=== PATIENT | male | born 1950 | race Caucasian/White ===

== ENCOUNTER 2018-10-12 09:33 | Outpatient (CLI) | payer MEDICARE ==
--- NOTE | 2018-10-12 09:50 | RAD ---
XR Chest Pa Lat STANDARD HISTORY: Cough and congestion COMPARISON: None FINDINGS: The heart size is normal. The lungs are well expanded without focal areas of consolidation, pneumothorax or pleural effusions. There are degenerative changes in the spine. IMPRESSION: No radiographic evidence of acute cardiopulmonary process.
== END 2018-10-12 09:34 | disposition home or self-care (01) ==
LOC: SCSRAD 09:33
PROVIDERS: ATTEND Family Medicine
DX: J22 Unspecified acute lower respiratory infection (principal)
CPT/HCPCS: 71046

== ENCOUNTER 2019-11-09 09:57 | Outpatient (CLI) | payer OTHER ==
--- NOTE | 2019-11-09 11:15 | CT ---
CT heart noncontrast coronary calcium score: DATE: 11/09/2019 HISTORY: 68-year-old male with hypertension. Coronary atherosclerotic disease screening exam. FINDINGS: Thoracic aorta is very tortuous, especially the ascending aorta, which crosses the midline into the r ight side of the posterior mediastinum. Ascending aortic caliber is at least 4 cm. (Aortic arch not included on images). Visualized limited [id number] central lung sage demonstrate no obvious cons olidation or infiltrate. No cardiomegaly. Diffusely low hepatic attenuation consistent with fatty liver. Agatston score coronary calcification: Left main: 0 LAD: 99 LCx: 69 RCA: 79 PDA: 0 Total: 247 IMPRESSION: 1.) Coronary atherosclerosis due to calcified coronary lesion. 2) total calcium score 247. This places the patient between the 50th percentile and 60th percentile f or patient's age group of 66-70 years. Moderate atherosclerotic plaque is present. At least mild coronary artery disease is highly likely. 3) hepatic steatosis.
== END 2019-11-09 09:58 | disposition home or self-care (01) ==
LOC: BICCT 09:57
PROVIDERS: ATTEND Family Medicine
DX: I10 Essential (primary) hypertension (principal); I25.10 Atherosclerotic heart disease of native coronary artery without angina pectoris; I25.84 Coronary atherosclerosis due to calcified coronary lesion; K76.0 Fatty (change of) liver, not elsewhere classified
CPT/HCPCS: 75571

== ENCOUNTER 2020-04-15 06:36 | Outpatient (CLI) | payer MEDICARE ==
[2020-04-15 11:03] LABS: #Eosinphils 0.3 10x3/uL (0.0-0.5); #Monocytes 0.7 10x3/uL (0.0-1.1); %Basophils 0.7 % (0.0-2.0); %Eosinophils 5.3 % (0.0-6.0); %Lymphocytes 32.4 % (18.0-47.0); %Neutrophils 50.1 % (40.0-75.0); Mean Corpuscular Hemoglobin 32.1 PG (27.0-33.0); Mean Corpuscular Volume 94.5 fl (80.0-100.0); Mean Platelet Volume 9.2 fl (7.4-10.4); Platelet Count 165 10x3/uL (130-400); RBC Distribution Width 14.1 % (11.5-14.5)
[2020-04-15 11:15] LABS: ALT (SGPT) 66 U/L (8-55); AST (SGOT) 67 U/L (5-34); Albumin 4.3 g/dL (3.4-4.8); Alkaline Phosphatase 83 U/L (40-110); Anion Gap 15 mmol/L (10-20); BUN (Urea Nitrogen) 14 mg/dL (8.4-25.7); Bilirubin, Total 1.1 mg/dL (0.2-1.2); Calc. Creatinine Clearance 0 mL/min (70-130); Calcium 9.6 mg/dL (7.8-10.44); Carbon Dioxide 28 mmol/L (23-31); Chloride 99 mmol/L (98-107); Estimated GFR-MDRD 69; Globulin 3.9 g/dL (2.4-3.5); Glucose 113 mg/dL (80-115); Potassium 4.5 mmol/L (3.5-5.1); Protein, Total 8.2 g/dL (5.8-8.1); Sodium 137 mmol/L (136-145)
[2020-04-15 20:04] LABS: SARS-CoV-2 MS2 Positive; SARS-CoV-2 N Gene Negative; SARS-CoV-2 S Gene Negative; SARS-CoV-2 by NAA Not Detected (NotDetected); SARS-CoV-2 orf1ab Negative
--- NOTE | 2020-04-16 07:10 | EKG ---
Test Reason : Blood Pressure : / mmHG Vent. Rate : 077 BPM Atrial Rate : 077 BPM P-R Int : 262 ms QRS Dur : 104 ms QT Int : 390 ms P-R-T Axes : 046 062 052 degrees QTc Int : 441 ms Sinus rhythm with 1st degree A-V block Septal infarct , age undetermined Abnormal ECG Confirmed by DR. Yanira MARROQUIN ([id number]) on 04/16/2020 7:10:06 AM Referred By: Juan Daniel JUSTICE Confirmed By:DR. Yanira MARROQUIN
== END 2020-04-15 06:37 | disposition home or self-care (01) ==
LOC: LABBT 06:36
PROVIDERS: ATTEND Surgery
DX: Z01.818 Encounter for other preprocedural examination (principal); Z01.812 Encounter for preprocedural laboratory examination; Z20.828 Contact with and (suspected) exposure to other viral communicable diseases; K42.9 Umbilical hernia without obstruction or gangrene; D17.79 Benign lipomatous neoplasm of other sites
CPT/HCPCS: 80053; 85025; 93005; U0003; 87635; 93010

== ENCOUNTER 2020-04-18 05:52 | Day surgery (SDC) | payer MEDICARE ==
[2020-04-17 09:26] VITALS: BMI 33.9
[2020-04-18] MEDS ORDERED: Fentanyl 100 MCG/2 ML VIAL ONE ×2 (07:36→09:31)
[2020-04-18] MEDS ORDERED: Lidocaine 1% w/Epinephrine 1:100K 20 ML VIAL ONE (07:43)
[2020-04-18] MEDS ORDERED: Bupivacaine PF 0.5% 30 ML VIAL ONE (07:43)
[2020-04-18] MEDS ORDERED: SUGAMMADEX SODIUM 200 MG/2 ML VIAL ONE (08:44)
--- NOTE | 2020-04-18 09:21 | OP ---
DATE OF PROCEDURE: 04/18/2020 PREOPERATIVE DIAGNOSES: Umbilical hernia and sebaceous cyst. PROCEDURES PERFORMED: 1. Umbilical hernia repair with mesh. 2. Excision of sebaceous cyst, left chest. INDICATIONS: The patient is a 69-year-old male, who has an enlarging painful umbilical hernia as well as a large sebaceous cyst, desired repair and removal. FINDINGS: 3 cm umbilical hernia defect, 8 cm mesh used, a 4 cm sebaceous cyst of left chest. DESCRIPTION OF PROCEDURE: After informed consent was obtained, the patient was taken to the operating room, given general endotracheal anesthesia, placed in the supine position. The abdomen was prepped and draped in usual fashion. Local anesthesia was infiltrated subcutaneously and deep, and a subumbilical incision was performed. Subcutaneous divided sharply. The umbilical skin was sharply dissected from the hernia sac with Metzenbaum scissors circumferentially down to the fascia. Then, using the cautery, the sac was incised circumferentially and removed. Contents were reduced. An 8 cm Proceed mesh was hydrated, rolled, and inserted intra-abdominally, then unrolled and its wings were sutured to the fascia with interrupted 0 Ethibond suture and then the mesh further secured with 0 Ethibond suture. Hemostasis was assured with electrocautery. The umbilical skin was sutured to the fascia with interrupted 3-0 Vicryl to restore umbilical contour and then skin closed with interrupted 4-0 Rapide. Steri-Strips were applied. Sterile bandage was applied. Then, local anesthesia was infiltrated subcutaneously and deep around the sebaceous cyst. An elliptical incision was performed and it was excised intact circumferentially and sent to Pathology for further analysis. Hemostasis was achieved with electrocautery. Subcutaneous was reapproximated with interrupted 3-0 Vicryl after irrigation. Then, skin was closed with interrupted 4-0 Rapide. Dermabond was applied. The patient tolerated the procedure well and transferred to Recovery in good condition. Sponge and needle count verified correct x2. Job ID: [id number]
[2020-04-18] MEDS ORDERED: Rocuronium Bromide 10 MG/ML (10ML VIAL) ONE (09:52)
[2020-04-18] MEDS ORDERED: Glycopyrrolate 0.2 MG/ML 5 ML SYRINGE ONE (09:52)
[2020-04-18] MEDS ORDERED: Succinylcholine 200 MG/10 ml SYRINGE FS ONE (09:52)
[2020-04-18] MEDS ORDERED: PHENYLEPHRINE-NS 100 MCG/ML 10 ML SYRINGE ONE (09:52)
[2020-04-18] MEDS ORDERED: Lidocaine 1% PF 5 ML VIAL ONE (09:52)
[2020-04-18] MEDS ORDERED: Ondansetron PF 4 MG/2 ML Vial ONE (09:52)
[2020-04-18] MEDS ORDERED: PROPOFOL 200 MG/20 ML VIAL ONE (09:52)
[2020-04-18] MEDS ORDERED: Dexamethasone 20 MG/5 ML VIAL ONE (09:52)
== END 2020-04-18 10:25 | disposition home or self-care (01) ==
LOC: SDC 05:52
PROVIDERS: ATTEND Surgery
PROC: 0WUF0JZ Supplement Abdominal Wall with Synthetic Substitute, Open Approach (ICD-10-PCS; principal; 2020-04-18)
PROC: 0HB5XZZ Excision of Chest Skin, External Approach (ICD-10-PCS; 2020-04-18)
DX: K42.9 Umbilical hernia without obstruction or gangrene (principal); L72.3 Sebaceous cyst; I10 Essential (primary) hypertension; G47.30 Sleep apnea, unspecified; M19.90 Unspecified osteoarthritis, unspecified site; F17.200 Nicotine dependence, unspecified, uncomplicated; Z79.82 Long term (current) use of aspirin; Z79.899 Other long term (current) drug therapy; Z88.5 Allergy status to narcotic agent
CPT/HCPCS: 11406; 49585; C1781; 88304; J0690; J1100; J2405; J2704; J3010; S0020

== ENCOUNTER 2022-04-28 10:31 | Outpatient (CLI) | payer MEDICARE | END 2022-04-28 10:32 | disposition home or self-care (01) | LOC: TBSIIMAG 10:31 | PROVIDERS: ATTEND Anesthesiology Pain Medicine | DX: M47.26 Other spondylosis with radiculopathy, lumbar region (principal); M51.36 Other intervertebral disc degeneration, lumbar region; M48.061 Spinal stenosis, lumbar region without neurogenic claudication; M51.35 Other intervertebral disc degeneration, thoracolumbar region; M48.05 Spinal stenosis, thoracolumbar region | CPT/HCPCS: 72148 ==